=== PATIENT | female | born 1955 | race Caucasian/White ===

== ENCOUNTER 2017-04-19 16:35 | Inpatient (IN) | payer MEDICARE, MEDICAID ==
--- NOTE | 2017-04-19 16:42 | ED Physician Chart ---
Chief Complaint/HPI - Patient Information Date Seen:: 04/19/17 Time Seen:: 16:37 Chief Complaint:: paranoid History of Present Illness:: pt sent from [facility] for staff concerns about increasing delusions and paranoia. they feel pt is not able to care for self in their environment. pt is alert. denies recent pain or injury or illness. she has long hx of psych dz. Allergies:: Allergies Allergy/AdvReac Type Severity Reaction Status Date / Time No Known Allergies Allergy Verified 07/07/16 20:34 Historian:: Patient, EMS Review:: Transfer documents Reviewed Review of Systems - Review of Systems General/Constitutional: No fever, No chills, No weight loss, No weakness, No diaphoresis, No edema, No loss of appetite Skin: No skin lesions, No rash, No bruising Head: No headache, No light-headedness Eyes: No loss of vision, No pain, No diplopia ENT: No earache, No nasal drainage, No sore throat, No tinnitus Neck: No neck pain, No swelling, No thyromegaly, No stiffness, No mass noted Cardio Vascular: No chest pain, No palpitations, No PND, No orthopnea, No edema Pulmonary: No SOB, No cough, No sputum, No wheezing GI: No nausea, No vomiting, No diarrhea, No pain, No melena, No hematochezia, No constipation, No hematemesis G/U: No dysuria, No frequency, No hematuria Musculoskeletal: No bone or joint pain, No back pain, No muscle pain Endocrine: No polyuria, No polydipsia Psychiatric: Prior psych history, No depression, Anxiety, No suicidal ideation, Auditory hallucination Hematopoietic: No bruising, No lymphadenopathy Allergic/Immuno: No urticaria, No angioedema Neurological: No syncope, No focal symptoms, No weakness, No paresthesia, No headache, No seizure, No dizziness, Confusion (?), No confusion, No vertigo Past Medical History - Past Medical History Past Medical History: HTN, CAD Social History: Non Smoker, No Alcohol, No Drug Use, Care Facility Psychiatricy History: Schizophrenia, Other (impulse ctrl) Medication: Reviewed Family Medical History - Family Member Father History Unknown: Yes Ethnicity: Non- Living Status: Hx Family Cancer: No Hx Family Coronary Artery Disease: No Hx Family Congestive Heart Failure: No Hx Family Hypertension: Yes Hx Family Stroke: No Hx Family Diabetes: No Hx Family Seizures: No Hx Family Dementia: No Hx Family AIDS: No Hx Family HIV: No Hx Family COPD: No Hx Family Hepatitis: No Hx Family Psychiatric Problems: Yes Hx Family Tuberculosis: No Physical Exam - Physical Examination General/Constitutional: Awake, Well-developed, well-nourished, Alert, No distress, GCS 15, Non-toxic appearing, Ambulatory Other Gen/Cons comments:: alert. mod obese. no edema. no sob. seems stable initially other than some mild confusion. vss. Head: Atraumatic Eyes: Lids, conjuctiva normal, PERRL, EOMI Skin: Nl inspection, No rash, No skin lesions, No ecchymosis, Well hydrated, No lymphadenopathy ENMT: External ears, nose nl, Nasal exam nl, Lips, teeth, gums nl Neck: Nontender, Full ROM w/o pain, No JVD, No nuchal rigidity, No bruit, No mass, No stridor Respiratory: Nl effort/Exclusion, Clear to Auscultation, No Wheeze/Rhonchi/Rales Cardio Vascular: RRR, No murmur, gallop, rubs, NL S1 S2 GI: No tenderness/rebounding/guarding, No organomegaly, No hernia, Normal BS's, Nondistended, No mass/bruits, No McBurney tenderness : No CVA tenderness Extremities: No tenderness or effusion, Full ROM, normal strength in all extremities, No edema, Normal digits & nails Neuro/Psych: Alert/oriented, DTR's symmetric, Normal sensory exam, Normal motor strength, Judgement/insight normal, Mood normal, Normal gait, No focal deficits Other Neuro/Psych comments:: calm at present. Misc: normal gait, Normal back, No paraspinal tenderness Labs/Radiology/EKG Results - Lab Results Results: Laboratory Tests 04/19/17 04/19/17 04/19/17 16:52 16:52 16:52 WBC 6.5 D RBC 4.43 Hgb 13.8 Hct 41.0 MCV 92.6 MCH 31.2 H MCHC Differential 33.7 RDW 12.6 Plt Count 155 MPV 11.1 Neutrophils % 40.8 Lymphocytes % 49.0 Monocytes % 8.1 Eosinophils % 1.9 Basophils % 0.2 Sodium 135 L Potassium 4.0 Chloride 103 Carbon Dioxide 27.3 Anion Gap 8.7 BUN 18 Creatinine 0.8 Est GFR ( Amer) > 60.0 Est GFR (Non-Af Amer) > 60.0 BUN/Creatinine Ratio 22.5 Glucose 97 Calcium 9.6 Total Bilirubin 0.3 AST 13 ALT 18 Alkaline Phosphatase 39 Total Protein 7.5 Albumin 4.2 Globulin 3.3 Albumin/Globulin Ratio 1.3 Triglycerides 237 H Cholesterol 177 LDL Cholesterol Direct 122 HDL Cholesterol 23 TSH 1.52 Salicylates < 25.0 L Acetaminophen < 10.0 L Ethyl Alcohol < 10 - EKG Interpretations EKG Time:: 16:45 Rate & Rhythm: nsr 65 [place]: 5 Intervals: qtc 625 ED Septic Shock - . Is Septic Shock (SBP<90, OR Lactate>4 mmol\L) present?: No Reassessment (Disposition) - Reassessment Reassessment:: pt remained calm/cooperative in ed. 6;43p) pt is medically clear for geripsych admission...awaiting bed... Reassessment Condition:: Unchanged - Diagnosis Diagnosis:: 1 worsening psychosis - delusional thinking 2 incidental prolonged qt on ecg - Patient Disposition Admitted to:: [facility] Condition at Disposition:: Unchanged
[2017-04-19 16:59] LABS: % BASOPHILS 0.2 % (0.0-2.0); % EOSINOPHILS 1.9 % (0.0-5.0); % MONOCYTES 8.1 % (2.0-10.0); % NEUTROPHILS 40.8 % (40.0-80.0); HEMOGLOBIN 13.8 gm/dL (11.7-15.5); MEAN CELL VOLUME 92.6 fl (81-100); MEAN CORPUSCULAR HEMOGLOBIN 31.2 pg (27.0-31.0); MEAN CORPUSCULAR HGB CONC 33.7 pg (28.0-36.0); MEAN PLATELET VOLUME 11.1 fl; NEUTROPHILE ABSOLUTE 2.7 Th/cmm (1.8-8.0); PLATELET COUNT 155 Th/cmm (150-400); RED BLOOD COUNT 4.43 Mil/cmm (3.80-5.10); RED CELL DISTRIBUTION WIDTH 12.6 % (11.5-20.0)
[2017-04-19 17:01] LABS: WHITE BLOOD COUNT 6.5 Th/cmm (4.8-10.8)
[2017-04-19 17:16] LABS: ACETAMINOPHEN < 10.0 ug/mL (10.0-30.0); ALB/GLOB RATIO 1.3 (1.0-1.8); ALKALINE PHOSPHATASE 39 U/L (34-104); ANION GAP 8.7 (7.0-16.0); BILIRUBIN,TOTAL 0.3 mg/dL (0.3-1.0); BUN - UREA NITROGEN 18 mg/dL (7-25); BUN/CREATININE RATIO 22.5; CALCIUM SERUM 9.6 mg/dL (8.6-10.3); CARBON DIOXIDE 27.3 mEq/L (21.0-31.0); CHLORIDE 103 mEq/L (98-107); CHOLESTEROL 177 mg/dL (<200); CREATININE - SERUM 0.8 mg/dL (0.6-1.2); GLUCOSE 97 mg/dL (70-105); SGOT 13 U/L (13-39); SGPT/ALT 18 U/L (7-52); SODIUM SERUM 135 mEq/L (136-145); TRIGLYCERIDES 237 mg/dL (<150)
[2017-04-19 18:56] LABS: URINE BILIRUBIN NEGATIVE (NEGATIVE); URINE COLOR AMBER; URINE GLUCOSE (UA) NEGATIVE (NEGATIVE); URINE KETONE 15 mg/dL (NEGATIVE)
[2017-04-19 18:57] LABS: URINE BACTERIA NONE SEEN /hpf (NONE SEEN); URINE BLOOD NEGATIVE (NEGATIVE); URINE EPITHELIAL CELLS MODERATE /lpf (FEW); URINE PH 5.5; URINE PROTEIN 30 mg/dL (NEGATIVE); URINE RBC NONE SEEN /hpf (0-5); URINE UROBILINOGEN 0.2 E.U./dL (0.2 - 1.0); URINE WBC 0-2 /hpf (0-5)
[2017-04-19 19:00] LABS: AMPHETAMINE URINE NEGATIVE (NEGATIVE); BARBITURATES URINE NEGATIVE (NEGATIVE); METHADONE URINE NEGATIVE (NEGATIVE)
[2017-04-19 19:41] VITALS: BP 132/78
[2017-04-19] MEDS ORDERED: Magnesium Hydroxide (MOM) 30 mL UDC PO PRN (19:51)
[2017-04-20] MEDS ORDERED: Benztropine 1 MG TAB PO SCH (09:00)
[2017-04-20] MEDS: Calcium Carb/Vit D 500 mg/200 U Tab PO SCH (09:11)
--- NOTE | 2017-04-20 15:20 | Admit Criteria Form ---
Admit Criteria Forms - Admit Criteria Diagnosis: PSYCHIATRIC DISORDERS (Place 'X' for any and all applicable criteria): Ongoing inpatient care may be needed for 1 or more of the following(1)(2)(3)(4)( 6)(7)(8): [ ]I. Danger to self or others not manageable at lower level of care. [ ]II. Grave disability (eg, inability to perform self care necessary at lower level of care) [ ]III. Agitation or inappropriate behavior interfering with care for primary condition (eg, attempting to discontinue lines or drains prematurely, unable to cooperate with respiratory care) [X]IV. Severe disability or disorder indicated by ALL of the following: [X]a) Severe behavioral health disorder-related symptoms or condition indicated by 1 or more of the following: [ ]i) Severe problem with cognition, memory, judgment, or impulse control [X]ii) Severe clinical manifestations (eg, hallucinations, delusions, other acute psychotic symptoms, shivani, extreme agitation or anxiety) [X]b) Patient management at lower level of care is not feasible until acute intervention or modification is initiated. Extended stay beyond goal length of stay for the primary condition may be needed until ALLof the following are present(1)(2)(3)(4)(7)72)(23): [ ]a) Danger to self or others is absent or manageable at lower level of care [ ]b) Behavior crisis management, including physical or chemical restraints, is required and is not available at a lower level of care. [ ]c) Behavioral symptoms (e.g., agitation, somnolence, inappropriate behavior) are present, and are not manageable at a lower level of care. [ ]d) Patient cannot understand follow-up treatment and crisis plan. [ ]e) Provider and supports are sufficiently available at lower level of care. [ ]f) Patient can participate (e.g., verify absence of plan for harm) and is in needed of monitoring. The original [facility] content created by [facility] has been revised. The portions of the content which have been revised are identified through the use of italic text or in bold, and [facility] has neither reviewed nor approved the modified material. All other unmodified content is copyright [facility]. Please see references footnoted in the original [facility] edition 2017
[2017-04-20] MEDS: Benztropine 1 MG TAB PO SCH (17:44)
[2017-04-21] MEDS: Calcium Carb/Vit D 500 mg/200 U Tab PO SCH (08:42)
[2017-04-21] MEDS: Benztropine 1 MG TAB PO SCH ×2 (08:43→17:08)
[2017-04-22] MEDS: Calcium Carb/Vit D 500 mg/200 U Tab PO SCH (09:26)
[2017-04-22] MEDS: Benztropine 1 MG TAB PO SCH ×2 (09:27→18:00)
[2017-04-23] MEDS: Benztropine 1 MG TAB PO SCH ×2 (09:09→17:39)
[2017-04-23] MEDS: Atorvastatin Calcium 10 MG TAB PO SCH (09:11)
[2017-04-23] MEDS: Calcium Carb/Vit D 500 mg/200 U Tab PO SCH (09:12)
[2017-04-24] MEDS: Benztropine 1 MG TAB PO SCH ×2 (08:49→16:56)
[2017-04-24] MEDS: Atorvastatin Calcium 10 MG TAB PO SCH (08:49)
[2017-04-24] MEDS: Calcium Carb/Vit D 500 mg/200 U Tab PO SCH (08:49)
[2017-04-25] MEDS: Calcium Carb/Vit D 500 mg/200 U Tab PO SCH (09:28)
[2017-04-25] MEDS: Atorvastatin Calcium 10 MG TAB PO SCH (09:29)
[2017-04-25] MEDS: Benztropine 1 MG TAB PO SCH ×2 (09:29→18:18)
[2017-04-26] MEDS: Atorvastatin Calcium 10 MG TAB PO SCH (09:28)
[2017-04-26] MEDS: Calcium Carb/Vit D 500 mg/200 U Tab PO SCH (09:28)
[2017-04-26] MEDS: Benztropine 1 MG TAB PO SCH ×2 (09:29→17:59)
[2017-04-27] MEDS: Calcium Carb/Vit D 500 mg/200 U Tab PO SCH (10:18)
[2017-04-27] MEDS: Benztropine 1 MG TAB PO SCH ×2 (10:19→18:14)
[2017-04-27] MEDS: Atorvastatin Calcium 10 MG TAB PO SCH (10:19)
[2017-04-28] MEDS: Benztropine 1 MG TAB PO SCH ×2 (08:08→17:11)
[2017-04-28] MEDS: Atorvastatin Calcium 10 MG TAB PO SCH (08:08)
[2017-04-28] MEDS: Calcium Carb/Vit D 500 mg/200 U Tab PO SCH (08:08)
[2017-04-29] MEDS: Atorvastatin Calcium 10 MG TAB PO SCH (08:15)
[2017-04-29] MEDS: Calcium Carb/Vit D 500 mg/200 U Tab PO SCH (08:15)
[2017-04-29] MEDS: Benztropine 1 MG TAB PO SCH ×2 (08:15→17:13)
[2017-04-30] MEDS: Atorvastatin Calcium 10 MG TAB PO SCH (08:34)
[2017-04-30] MEDS: Benztropine 1 MG TAB PO SCH ×2 (08:35→16:37)
[2017-04-30] MEDS: Calcium Carb/Vit D 500 mg/200 U Tab PO SCH (08:35)
[2017-05-01] MEDS: Calcium Carb/Vit D 500 mg/200 U Tab PO SCH (09:50)
[2017-05-01] MEDS: Benztropine 1 MG TAB PO SCH ×2 (09:50→17:11)
[2017-05-01] MEDS: Atorvastatin Calcium 10 MG TAB PO SCH (09:50)
[2017-05-02] MEDS: Atorvastatin Calcium 10 MG TAB PO SCH (09:37)
[2017-05-02] MEDS: Calcium Carb/Vit D 500 mg/200 U Tab PO SCH (09:37)
[2017-05-02] MEDS: Benztropine 1 MG TAB PO SCH ×2 (09:38→17:15)
[2017-05-03] MEDS: Atorvastatin Calcium 10 MG TAB PO SCH (08:15)
[2017-05-03] MEDS: Benztropine 1 MG TAB PO SCH ×2 (08:15→16:10)
[2017-05-03] MEDS: Calcium Carb/Vit D 500 mg/200 U Tab PO SCH (08:15)
[2017-05-04] MEDS: Atorvastatin Calcium 10 MG TAB PO SCH (08:40)
[2017-05-04] MEDS: Calcium Carb/Vit D 500 mg/200 U Tab PO SCH (08:40)
[2017-05-04] MEDS: Benztropine 1 MG TAB PO SCH ×2 (08:41→16:21)
[2017-05-05] MEDS: Benztropine 1 MG TAB PO SCH ×2 (08:13→17:38)
[2017-05-05] MEDS: Atorvastatin Calcium 10 MG TAB PO SCH (08:14)
[2017-05-05] MEDS: Calcium Carb/Vit D 500 mg/200 U Tab PO SCH (08:14)
[2017-05-06] MEDS: Benztropine 1 MG TAB PO SCH ×2 (10:48→17:28)
[2017-05-06] MEDS: Atorvastatin Calcium 10 MG TAB PO SCH (10:48)
[2017-05-06] MEDS: Calcium Carb/Vit D 500 mg/200 U Tab PO SCH (10:48)
[2017-05-07] MEDS: Calcium Carb/Vit D 500 mg/200 U Tab PO SCH (09:21)
[2017-05-07] MEDS: Benztropine 1 MG TAB PO SCH ×2 (09:21→16:47)
[2017-05-07] MEDS: Atorvastatin Calcium 10 MG TAB PO SCH (09:22)
[2017-05-08] MEDS: Calcium Carb/Vit D 500 mg/200 U Tab PO SCH (09:40)
[2017-05-08] MEDS: Benztropine 1 MG TAB PO SCH ×2 (09:40→16:37)
[2017-05-08] MEDS: Atorvastatin Calcium 10 MG TAB PO SCH (09:40)
[2017-05-08] MEDS: risperiDONE 1 mg/mL 30 mL Bottle PO SCH (16:37)
[2017-05-09] MEDS: Benztropine 1 MG TAB PO SCH ×2 (09:03→16:12)
[2017-05-09] MEDS: Calcium Carb/Vit D 500 mg/200 U Tab PO SCH (09:03)
[2017-05-09] MEDS: Atorvastatin Calcium 10 MG TAB PO SCH (09:04)
[2017-05-09] MEDS: risperiDONE 1 mg/mL 30 mL Bottle PO SCH ×2 (09:06→16:12)
[2017-05-10] MEDS: Benztropine 1 MG TAB PO SCH ×2 (08:26→16:44)
[2017-05-10] MEDS: Atorvastatin Calcium 10 MG TAB PO SCH (08:26)
[2017-05-10] MEDS: Calcium Carb/Vit D 500 mg/200 U Tab PO SCH (08:26)
[2017-05-10] MEDS: risperiDONE 1 mg/mL 30 mL Bottle PO SCH ×3 (08:27→16:44)
[2017-05-10] MEDS: NYSTATIN 100000 UNITS/GM POWD TP SCH (21:00)
--- NOTE | 2017-05-11 08:07 | General Progress Note ---
Subjective - Review of Systems Service Date: 05/11/17 Subjective: Awake,Alert,Afebrile Objective - Results Result Diagrams: 04/19/17 16:52 04/19/17 16:52 Recent Labs: Laboratory Last Values WBC 6.5 Th/cmm (4.8-10.8) D 04/19/17 16:52 RBC 4.43 Mil/cmm (3.80-5.10) 04/19/17 16:52 Hgb 13.8 gm/dL (11.7-15.5) 04/19/17 16:52 Hct 41.0 % (35.0-45.0) 04/19/17 16:52 MCV 92.6 fl (81-100) 04/19/17 16:52 MCH 31.2 pg (27.0-31.0) H 04/19/17 16:52 MCHC Differential 33.7 pg (28.0-36.0) 04/19/17 16:52 RDW 12.6 % (11.5-20.0) 04/19/17 16:52 Plt Count 155 Th/cmm (150-400) 04/19/17 16:52 MPV 11.1 fl 04/19/17 16:52 Neutrophils % 40.8 % (40.0-80.0) 04/19/17 16:52 Lymphocytes % 49.0 % (20.0-50.0) 04/19/17 16:52 Monocytes % 8.1 % (2.0-10.0) 04/19/17 16:52 Eosinophils % 1.9 % (0.0-5.0) 04/19/17 16:52 Basophils % 0.2 % (0.0-2.0) 04/19/17 16:52 Sodium 135 mEq/L (136-145) L 04/19/17 16:52 Potassium 4.0 mEq/L (3.5-5.1) 04/19/17 16:52 Chloride 103 mEq/L (98-107) 04/19/17 16:52 Carbon Dioxide 27.3 mEq/L (21.0-31.0) 04/19/17 16:52 Anion Gap 8.7 (7.0-16.0) 04/19/17 16:52 BUN 18 mg/dL (7-25) 04/19/17 16:52 Creatinine 0.8 mg/dL (0.6-1.2) 04/19/17 16:52 Est GFR ( Amer) > 60.0 ml/min (>90) 04/19/17 16:52 Est GFR (Non-Af Amer) > 60.0 ml/min 04/19/17 16:52 BUN/Creatinine Ratio 22.5 04/19/17 16:52 Glucose 97 mg/dL (70-105) 04/19/17 16:52 Calcium 9.6 mg/dL (8.6-10.3) 04/19/17 16:52 Total Bilirubin 0.3 mg/dL (0.3-1.0) 04/19/17 16:52 AST 13 U/L (13-39) 04/19/17 16:52 ALT 18 U/L (7-52) 04/19/17 16:52 Alkaline Phosphatase 39 U/L (34-104) 04/19/17 16:52 Total Protein 7.5 gm/dL (6.0-8.3) 04/19/17 16:52 Albumin 4.2 gm/dL (3.7-5.3) 04/19/17 16:52 Globulin 3.3 gm/dL 04/19/17 16:52 Albumin/Globulin Ratio 1.3 (1.0-1.8) 04/19/17 16:52 Triglycerides 237 mg/dL (<150) H 04/19/17 16:52 Cholesterol 177 mg/dL (<200) 04/19/17 16:52 LDL Cholesterol Direct 122 mg/dL (75-193) 04/19/17 16:52 HDL Cholesterol 23 mg/dL (23-92) 04/19/17 16:52 TSH 1.52 uIU/ml (0.34-5.60) 04/19/17 16:52 Urine Source CLEAN C 04/19/17 18:30 Urine Color CHANDANA 04/19/17 18:30 Urine Clarity HAZY (CLEAR) 04/19/17 18:30 Urine pH 5.5 04/19/17 18:30 Ur Specific [place] 1.030 (1.005-1.030) 04/19/17 18:30 Urine Protein 30 mg/dL (NEGATIVE) H 04/19/17 18:30 Urine Glucose (UA) NEGATIVE mg/dL (NEGATIVE) 04/19/17 18:30 Urine Ketones 15 mg/dL (NEGATIVE) H 04/19/17 18:30 Urine Blood NEGATIVE (NEGATIVE) 04/19/17 18:30 Urine Nitrate NEGATIVE (NEGATIVE) 04/19/17 18:30 Urine Bilirubin NEGATIVE (NEGATIVE) 04/19/17 18:30 Urine Urobilinogen 0.2 E.U./dL (0.2 - 1.0) 04/19/17 18:30 Ur Leukocyte Esterase NEGATIVE (NEGATIVE) 04/19/17 18:30 Urine RBC NONE SEEN /hpf (0-5) 04/19/17 18:30 Urine WBC 0-2 /hpf (0-5) 04/19/17 18:30 Ur Epithelial Cells MODERATE /lpf (FEW) 04/19/17 18:30 Urine Bacteria NONE SEEN /hpf (NONE SEEN) 04/19/17 18:30 Salicylates < 25.0 mg/L (30.0-100.0) L 04/19/17 16:52 Urine Opiates Screen NEGATIVE (NEGATIVE) 04/19/17 18:30 Urine Methadone Screen NEGATIVE (NEGATIVE) 04/19/17 18:30 Acetaminophen < 10.0 ug/mL (10.0-30.0) L 04/19/17 16:52 Ur Barbiturates Screen NEGATIVE (NEGATIVE) 04/19/17 18:30 Valproic Acid 51.5 ug/mL (50.0-100.0) 04/30/17 10:22 Ur Tricyclics Screen NEGATIVE (NEGATIVE) 04/19/17 18:30 Ur Phencyclidine Scrn NEGATIVE (NEGATIVE) 04/19/17 18:30 Amphetamines Screen NEGATIVE (NEGATIVE) 04/19/17 18:30 U Methamphetamines Scrn NEGATIVE (NEGATIVE) 04/19/17 18:30 U Benzodiazepines Scrn NEGATIVE (NEGATIVE) 04/19/17 18:30 U Cocaine Metab Screen NEGATIVE (NEGATIVE) 04/19/17 18:30 U Cannabinoids Screen NEGATIVE (NEGATIVE) 04/19/17 18:30 Ethyl Alcohol < 10 mg/dL (0-10) 04/19/17 16:52 RPR NONREACTIVE (NONREACTIVE) 04/19/17 16:52 - Physical Exam Vitals and I&O: Vital Signs Temp 97.8 F 05/11/17 06:34 Pulse 92 05/11/17 06:34 Resp 20 05/11/17 06:34 BP 137/71 05/11/17 06:34 Pulse Ox 96 05/11/17 06:34 Intake & Output 05/10/17 05/11/17 05/11/17 18:59 06:59 18:59 Intake Total 1800 120 Balance 1800 120 Intake: Oral 1800 120 Other: # Voids 3 3 # Bowel Movements 0 Active Medications: Current Medications Acetaminophen (Tylenol) 650 mg PO Q4HR PRN PRN Reason: Pain Stop: 06/18/17 19:50 Last Admin: 04/22/17 14:50 Dose: 650 mg Atorvastatin Calcium (Lipitor) 10 mg PO DAILY GUTIERREZ PRN Reason: Protocol Stop: 06/22/17 08:59 Last Admin: 05/10/17 08:26 Dose: 10 mg Benztropine Mesylate (Cogentin) 2 mg PO BID GUTIERREZ Stop: 06/19/17 11:55 Last Admin: 05/10/17 16:44 Dose: 2 mg Bupropion HCl (Wellbutrin Sr) 150 mg PO BID GUTIERREZ PRN Reason: Protocol Stop: 07/01/17 16:59 Last Admin: 05/10/17 16:44 Dose: 150 mg Calcium/Vitamin D (Oscal W/Vitamin D) 1 tab PO DAILY GUTIERREZ Stop: 06/19/17 08:59 Last Admin: 05/10/17 08:26 Dose: 1 tab Carvedilol (Coreg) 3.125 mg PO BIDWM GUTIERREZ Stop: 06/19/17 07:59 Last Admin: 05/10/17 17:13 Dose: Not Given Clonidine HCl (Catapres) 0.1 mg PO Q8HR PRN PRN Reason: Hypertension Stop: 07/04/17 07:48 Last Admin: 05/10/17 05:42 Dose: 0.1 mg Divalproex Sodium (Depakote Er) 500 mg PO BID GUTIERREZ PRN Reason: Protocol Stop: 06/19/17 08:59 Last Admin: 05/10/17 16:45 Dose: 500 mg Docusate Sodium (Colace) 100 mg PO BID GUTIERREZ Stop: 06/19/17 08:59 Last Admin: 05/10/17 16:45 Dose: 100 mg Escitalopram Oxalate (Lexapro) 20 mg PO DAILY GUTIERREZ PRN Reason: Protocol Stop: 06/25/17 10:36 Last Admin: 05/10/17 08:27 Dose: 20 mg Magnesium Hydroxide (Milk Of Magnesia) 30 ml PO DAILY PRN PRN Reason: if stool softener ineffective Stop: 06/18/17 19:50 Nystatin (Nystop) 0 units TP TID GUTIERREZ Stop: 07/09/17 20:59 Last Admin: 05/10/17 21:00 Dose: 1 units Risperidone (Risperdal) 2 mg PO BID GUTIERREZ PRN Reason: Protocol Stop: 07/09/17 08:59 Last Admin: 05/10/17 16:44 Dose: 2 mg General: Alert HEENT: Atraumatic Cardiovascular: Regular rate Lungs: Clear to auscultation - Procedures Procedures: Procedures Procedure Code Date GROUP PSYCHOTHERAPY 14397 10/22/15 GROUP PSYCHOTHERAPY [id number] 10/22/15 OTHER GROUP THERAPY 94.44 05/18/15 RECREATIONAL THERAPY 93.81 11/02/12 Assessment/Plan - Problem List Patient Problems: All Active Problems Anxiety (Active) F41.9 Chronic obstructive lung disease (Active) J44.9 History of - depression (Active) Z86.59 INCREASED HALLUCINATIONS (Active 01/10/14) Osteoarthritis (Active) M19.90 Posttraumatic stress disorder (Active) F43.10 Schizoaffective disorder (Active) F25.9 Agitated (Acute) R45.1 - Assessment Assessment: See Above - Plan Plan: Continue current treatment Nutritional Asmnt/Malnutr-PDOC - Dietary Evaluation Malnutrition Findings (Please click <Entered> for more info): Nutritional Asmnt/Malnutrition Start: 04/22/17 10: 59 Text: Status: Complete Freq: Document 04/22/17 10:59 SUN (Rec: 04/22/17 11:11 SUN CLAY- FNS1) Nutritional Asmnt/Malnutrition Patient General Information Nutritional Screening Moderate Risk Screening Diagnosis Psychosis Pertinent Medical Hx/Surgical Hx Schizophrenia, major depressive disorder, COPD, Seizure, Hypertension, anxiety , cardiomegaly, osteoarthritis . Subjective Information Patient was admitted from SNF for increased agitation, aggressive behavior and paranoia. Sitting up in bed. No issues with current diet; adequate oral intake to meet nutrient needs. Current Diet Order/ Nutrition Support Mechanical soft chopped Patient / S.O Not Indicated Pertinent Medications oscal w/vitamin D, colace, MOM Pertinent Labs TAG 237 Nutritional Hx/Data Height 1.73 m Height (Calculated Centimeters) 172.7 Current Weight (lbs) 97.069 kg Weight (Calculated Kilograms) 97.1 Weight (Calculated Grams) 33614.8 [place] Body Weight 140 % [place] Body Weight 152 Recent Weight Change No Weight Status Obese GI Symptoms GI Symptoms None Food Allergies No Cultural/Ethnic/Moravian Belief None indicated Usual diet at home soft Skin Integrity/Comment: Jason 21 Current %PO Good (75-100%) Estimated Nutritional Goals BEE in Kcals: Adj wt of IBW Calories/Kcals/Kg 72kg AdjBW 25-30 kcal/kg Kcals Calculated ~4355-1279 kcal/day Protein: Adj wt of IBW Protein g/k-1.2 gm/kg Protein Calculated 70-85 gm/day Fluid: ml ~3578-1532 ml/day (1 ml/kcal) Nutritional Problem 1. Problem Problem Obesity related to Etiology possible excessive oral intake aeb Signs/Symptoms: BMI 32.5 kg/m2 Intervention/Recommendation Comments 1. Continue mechanical soft chopped diet as tolerated by patient. 2. Monitor weight and prevent snacking between meals. Expected Outcomes/Goals Expected Outcomes/Goals Weight stable or trend toward ideal body weight, labs remain normal, oral intake to meet 75-100% of estimated nutrient needs.
[2017-05-11] MEDS: Atorvastatin Calcium 10 MG TAB PO SCH (08:36)
[2017-05-11] MEDS: Calcium Carb/Vit D 500 mg/200 U Tab PO SCH (08:37)
[2017-05-11] MEDS: Benztropine 1 MG TAB PO SCH ×2 (08:37→17:48)
[2017-05-11] MEDS: NYSTATIN 100000 UNITS/GM POWD TP SCH ×3 (08:39→21:45)
[2017-05-11] MEDS: risperiDONE 1 mg/mL 30 mL Bottle PO SCH (08:39)
[2017-05-11 11:47] LABS: % BASOPHILS 0.8 % (0.0-2.0); % MONOCYTES 8.4 % (2.0-10.0); % NEUTROPHILS 72.8 % (40.0-80.0); HEMATOCRIT 39.3 % (35.0-45.0); HEMOGLOBIN 13.4 gm/dL (11.7-15.5); MEAN CELL VOLUME 92.1 fl (81-100); MEAN CORPUSCULAR HEMOGLOBIN 31.3 pg (27.0-31.0); MEAN PLATELET VOLUME 10.7 fl; NEUTROPHILE ABSOLUTE 6.5 Th/cmm (1.8-8.0); PLATELET COUNT 170 Th/cmm (150-400); RED BLOOD COUNT 4.27 Mil/cmm (3.80-5.10); RED CELL DISTRIBUTION WIDTH 12.6 % (11.5-20.0); WHITE BLOOD COUNT 8.9 Th/cmm (4.8-10.8)
[2017-05-11 12:06] LABS: ALB/GLOB RATIO 1.2 (1.0-1.8); ALKALINE PHOSPHATASE 50 U/L (34-104); ANION GAP 10.8 (7.0-16.0); BILIRUBIN,TOTAL 0.4 mg/dL (0.3-1.0); BUN - UREA NITROGEN 14 mg/dL (7-25); BUN/CREATININE RATIO 17.5; CALCIUM SERUM 9.9 mg/dL (8.6-10.3); CARBON DIOXIDE 27.3 mEq/L (21.0-31.0); CHLORIDE 100 mEq/L (98-107); CREATININE - SERUM 0.8 mg/dL (0.6-1.2); GLUCOSE 146 mg/dL (70-105); POTASSIUM SERUM 4.1 mEq/L (3.5-5.1); SGOT 19 U/L (13-39); SGPT/ALT 18 U/L (7-52); SODIUM SERUM 134 mEq/L (136-145)
--- NOTE | 2017-05-11 19:26 | Progress Notes ---
DATE: 05/11/2017 Case was discussed with staff of the patient, reviewed records. The patient was confused this morning. She could not recognize me, could not tell me the date, does not know where she is, why she is here, still this is quite a change, she believes she cannot walk. She has been compliant with the medications with no side effects. I did take her off Seroquel yesterday; however, I think at this point, she is delirious, so I asked the staff to get the stat urinalysis, CBC and BMP and call the medical doctor, Dr. Kendrick regarding that to evaluate her, as she may be having some infection and she ____ and we will continue to work with the patient in group therapy, milieu therapy, adjust medication as needed. JOB# [id number]
--- NOTE | 2017-05-12 08:02 | General Progress Note ---
Subjective - Review of Systems Service Date: 05/12/17 Subjective: Awake,Alert,Afebrile Objective - Results Result Diagrams: 05/11/17 11:39 05/11/17 11:39 Recent Labs: Laboratory Last Values WBC 8.9 Th/cmm (4.8-10.8) D 05/11/17 11:39 RBC 4.27 Mil/cmm (3.80-5.10) 05/11/17 11:39 Hgb 13.4 gm/dL (11.7-15.5) 05/11/17 11:39 Hct 39.3 % (35.0-45.0) 05/11/17 11:39 MCV 92.1 fl (81-100) 05/11/17 11:39 MCH 31.3 pg (27.0-31.0) H 05/11/17 11:39 MCHC Differential 34.0 pg (28.0-36.0) 05/11/17 11:39 RDW 12.6 % (11.5-20.0) 05/11/17 11:39 Plt Count 170 Th/cmm (150-400) 05/11/17 11:39 MPV 10.7 fl 05/11/17 11:39 Neutrophils % 72.8 % (40.0-80.0) 05/11/17 11:39 Lymphocytes % 17.0 % (20.0-50.0) L 05/11/17 11:39 Monocytes % 8.4 % (2.0-10.0) 05/11/17 11:39 Eosinophils % 1.0 % (0.0-5.0) 05/11/17 11:39 Basophils % 0.8 % (0.0-2.0) 05/11/17 11:39 Sodium 134 mEq/L (136-145) L 05/11/17 11:39 Potassium 4.1 mEq/L (3.5-5.1) 05/11/17 11:39 Chloride 100 mEq/L (98-107) 05/11/17 11:39 Carbon Dioxide 27.3 mEq/L (21.0-31.0) 05/11/17 11:39 Anion Gap 10.8 (7.0-16.0) 05/11/17 11:39 BUN 14 mg/dL (7-25) 05/11/17 11:39 Creatinine 0.8 mg/dL (0.6-1.2) 05/11/17 11:39 Est GFR ( Amer) > 60.0 ml/min (>90) 05/11/17 11:39 Est GFR (Non-Af Amer) > 60.0 ml/min 05/11/17 11:39 BUN/Creatinine Ratio 17.5 05/11/17 11:39 Glucose 146 mg/dL (70-105) H 05/11/17 11:39 Calcium 9.9 mg/dL (8.6-10.3) 05/11/17 11:39 Total Bilirubin 0.4 mg/dL (0.3-1.0) 05/11/17 11:39 AST 19 U/L (13-39) 05/11/17 11:39 ALT 18 U/L (7-52) 05/11/17 11:39 Alkaline Phosphatase 50 U/L (34-104) 05/11/17 11:39 Total Protein 7.9 gm/dL (6.0-8.3) 05/11/17 11:39 Albumin 4.3 gm/dL (3.7-5.3) 05/11/17 11:39 Globulin 3.6 gm/dL 05/11/17 11:39 Albumin/Globulin Ratio 1.2 (1.0-1.8) 05/11/17 11:39 Triglycerides 237 mg/dL (<150) H 04/19/17 16:52 Cholesterol 177 mg/dL (<200) 04/19/17 16:52 LDL Cholesterol Direct 122 mg/dL (75-193) 04/19/17 16:52 HDL Cholesterol 23 mg/dL (23-92) 04/19/17 16:52 TSH 1.52 uIU/ml (0.34-5.60) 04/19/17 16:52 Urine Source CLEAN C 04/19/17 18:30 Urine Color CHANDANA 04/19/17 18:30 Urine Clarity HAZY (CLEAR) 04/19/17 18:30 Urine pH 5.5 04/19/17 18:30 Ur Specific [place] 1.030 (1.005-1.030) 04/19/17 18:30 Urine Protein 30 mg/dL (NEGATIVE) H 04/19/17 18:30 Urine Glucose (UA) NEGATIVE mg/dL (NEGATIVE) 04/19/17 18:30 Urine Ketones 15 mg/dL (NEGATIVE) H 04/19/17 18:30 Urine Blood NEGATIVE (NEGATIVE) 04/19/17 18:30 Urine Nitrate NEGATIVE (NEGATIVE) 04/19/17 18:30 Urine Bilirubin NEGATIVE (NEGATIVE) 04/19/17 18:30 Urine Urobilinogen 0.2 E.U./dL (0.2 - 1.0) 04/19/17 18:30 Ur Leukocyte Esterase NEGATIVE (NEGATIVE) 04/19/17 18:30 Urine RBC NONE SEEN /hpf (0-5) 04/19/17 18:30 Urine WBC 0-2 /hpf (0-5) 04/19/17 18:30 Ur Epithelial Cells MODERATE /lpf (FEW) 04/19/17 18:30 Urine Bacteria NONE SEEN /hpf (NONE SEEN) 04/19/17 18:30 Salicylates < 25.0 mg/L (30.0-100.0) L 04/19/17 16:52 Urine Opiates Screen NEGATIVE (NEGATIVE) 04/19/17 18:30 Urine Methadone Screen NEGATIVE (NEGATIVE) 04/19/17 18:30 Acetaminophen < 10.0 ug/mL (10.0-30.0) L 04/19/17 16:52 Ur Barbiturates Screen NEGATIVE (NEGATIVE) 04/19/17 18:30 Valproic Acid 51.5 ug/mL (50.0-100.0) 04/30/17 10:22 Ur Tricyclics Screen NEGATIVE (NEGATIVE) 04/19/17 18:30 Ur Phencyclidine Scrn NEGATIVE (NEGATIVE) 04/19/17 18:30 Amphetamines Screen NEGATIVE (NEGATIVE) 04/19/17 18:30 U Methamphetamines Scrn NEGATIVE (NEGATIVE) 04/19/17 18:30 U Benzodiazepines Scrn NEGATIVE (NEGATIVE) 04/19/17 18:30 U Cocaine Metab Screen NEGATIVE (NEGATIVE) 04/19/17 18:30 U Cannabinoids Screen NEGATIVE (NEGATIVE) 04/19/17 18:30 Ethyl Alcohol < 10 mg/dL (0-10) 04/19/17 16:52 RPR NONREACTIVE (NONREACTIVE) 04/19/17 16:52 - Physical Exam Vitals and I&O: Vital Signs Temp 97.8 F 05/12/17 06:32 Pulse 99 05/12/17 06:32 Resp 19 05/12/17 06:32 BP 148/83 05/12/17 06:32 Pulse Ox 97 05/12/17 06:32 Intake & Output 05/11/17 05/12/17 05/12/17 18:59 06:59 18:59 Intake Total 1400 120 Balance 1400 120 Weight (lbs) 98.293 kg Intake: Oral 1400 120 Other: # Voids 3 3 # Bowel Movements 0 Active Medications: Current Medications Acetaminophen (Tylenol) 650 mg PO Q4HR PRN PRN Reason: Pain Stop: 06/18/17 19:50 Last Admin: 04/22/17 14:50 Dose: 650 mg Atorvastatin Calcium (Lipitor) 10 mg PO DAILY GUTIERREZ PRN Reason: Protocol Stop: 06/22/17 08:59 Last Admin: 05/11/17 08:36 Dose: 10 mg Benztropine Mesylate (Cogentin) 2 mg PO BID GUTIERREZ Stop: 06/19/17 11:55 Last Admin: 05/11/17 17:48 Dose: 2 mg Bupropion HCl (Wellbutrin Sr) 150 mg PO BID GUTIERREZ PRN Reason: Protocol Stop: 07/01/17 16:59 Last Admin: 05/11/17 17:47 Dose: 150 mg Calcium/Vitamin D (Oscal W/Vitamin D) 1 tab PO DAILY GUTIERREZ Stop: 06/19/17 08:59 Last Admin: 05/11/17 08:37 Dose: 1 tab Carvedilol (Coreg) 3.125 mg PO BIDWM GUTIERREZ Stop: 06/19/17 07:59 Last Admin: 05/11/17 17:48 Dose: 3.125 mg Clonidine HCl (Catapres) 0.1 mg PO Q8HR PRN PRN Reason: Hypertension Stop: 07/04/17 07:48 Last Admin: 05/10/17 05:42 Dose: 0.1 mg Divalproex Sodium (Depakote Er) 500 mg PO BID GUTIERREZ PRN Reason: Protocol Stop: 06/19/17 08:59 Last Admin: 05/11/17 17:47 Dose: 500 mg Docusate Sodium (Colace) 100 mg PO BID GUTIERREZ Stop: 06/19/17 08:59 Last Admin: 05/11/17 17:47 Dose: 100 mg Escitalopram Oxalate (Lexapro) 20 mg PO DAILY GUTIERREZ PRN Reason: Protocol Stop: 06/25/17 10:36 Last Admin: 05/11/17 08:37 Dose: 20 mg Magnesium Hydroxide (Milk Of Magnesia) 30 ml PO DAILY PRN PRN Reason: if stool softener ineffective Stop: 06/18/17 19:50 Last Admin: 05/11/17 23:55 Dose: 30 ml Nystatin (Nystop) 0 units TP TID GUTIERREZ Stop: 07/09/17 20:59 Last Admin: 05/11/17 21:45 Dose: 1 units General: Alert HEENT: Atraumatic Cardiovascular: Regular rate Lungs: Clear to auscultation - Procedures Procedures: Procedures Procedure Code Date GROUP PSYCHOTHERAPY 37033 10/22/15 GROUP PSYCHOTHERAPY GZHZZZZ 10/22/15 OTHER GROUP THERAPY 94.44 05/18/15 RECREATIONAL THERAPY 93.81 11/02/12 Assessment/Plan - Problem List Patient Problems: All Active Problems Anxiety (Active) F41.9 Chronic obstructive lung disease (Active) J44.9 History of - depression (Active) Z86.59 INCREASED HALLUCINATIONS (Active 01/10/14) Osteoarthritis (Active) M19.90 Posttraumatic stress disorder (Active) F43.10 Schizoaffective disorder (Active) F25.9 Agitated (Acute) R45.1 - Assessment Assessment: BP elevated today. - Plan Plan: BP elevated. Will order Losartan 25mg Po daily and continue to monitor BP. Will add clonidine PRN Nutritional Asmnt/Malnutr-PDOC - Dietary Evaluation Malnutrition Findings (Please click <Entered> for more info): Nutritional Asmnt/Malnutrition Start: 04/22/17 10: 59 Text: Status: Complete Freq: Document 04/22/17 10:59 SUN (Rec: 04/22/17 11:11 SUN [email or web address]) Nutritional Asmnt/Malnutrition Patient General Information Nutritional Screening Moderate Risk Screening Diagnosis Psychosis Pertinent Medical Hx/Surgical Hx Schizophrenia, major depressive disorder, COPD, Seizure, Hypertension, anxiety , cardiomegaly, osteoarthritis . Subjective Information Patient was admitted from SNF for increased agitation, aggressive behavior and paranoia. Sitting up in bed. No issues with current diet; adequate oral intake to meet nutrient needs. Current Diet Order/ Nutrition Support Mechanical soft chopped Patient / S.O Not Indicated Pertinent Medications oscal w/vitamin D, colace, MOM Pertinent Labs TAG 237 Nutritional Hx/Data Height 1.73 m Height (Calculated Centimeters) 172.7 Current Weight (lbs) 97.069 kg Weight (Calculated Kilograms) 97.1 Weight (Calculated Grams) 98195.8 [place] Body Weight 140 % [place] Body Weight 152 Recent Weight Change No Weight Status Obese GI Symptoms GI Symptoms None Food Allergies No Cultural/Ethnic/Gnosticist Belief None indicated Usual diet at home soft Skin Integrity/Comment: Jason [place] Current %PO Good (75-100%) Estimated Nutritional Goals BEE in Kcals: Adj wt of IBW Calories/Kcals/Kg 72kg AdjBW 25-30 kcal/kg Kcals Calculated ~8332-0984 kcal/day Protein: Adj wt of IBW Protein g/k-1.2 gm/kg Protein Calculated 70-85 gm/day Fluid: ml ~0535-6338 ml/day (1 ml/kcal) Nutritional Problem 1. Problem Problem Obesity related to Etiology possible excessive oral intake aeb Signs/Symptoms: BMI 32.5 kg/m2 Intervention/Recommendation Comments 1. Continue mechanical soft chopped diet as tolerated by patient. 2. Monitor weight and prevent snacking between meals. Expected Outcomes/Goals Expected Outcomes/Goals Weight stable or trend toward ideal body weight, labs remain normal, oral intake to meet 75-100% of estimated nutrient needs.
[2017-05-12 08:29] LABS: URINE BILIRUBIN NEGATIVE (NEGATIVE); URINE BLOOD TRACE (NEGATIVE); URINE COLOR YELLOW; URINE GLUCOSE (UA) NEGATIVE (NEGATIVE); URINE KETONE TRACE mg/dL (NEGATIVE)
[2017-05-12 08:30] LABS: URINE PROTEIN NEGATIVE (NEGATIVE); URINE RBC 0-2 /hpf (0-5); URINE UROBILINOGEN 0.2 E.U./dL (0.2 - 1.0)
[2017-05-12 08:31] LABS: URINE BACTERIA NONE SEEN /hpf (NONE SEEN); URINE EPITHELIAL CELLS FEW /lpf (FEW); URINE WBC 0-2 /hpf (0-5)
[2017-05-12] MEDS: Calcium Carb/Vit D 500 mg/200 U Tab PO SCH (09:35)
[2017-05-12] MEDS: Benztropine 1 MG TAB PO SCH ×2 (09:35→17:11)
[2017-05-12] MEDS: Atorvastatin Calcium 10 MG TAB PO SCH (09:35)
[2017-05-12] MEDS: NYSTATIN 100000 UNITS/GM POWD TP SCH ×3 (09:37→20:53)
--- NOTE | 2017-05-12 16:37 | Progress Notes ---
DATE: 05/12/2017 Case was discussed with staff of the patient. The patient reported to have shown little progress. She was found to have no infection, nothing serious. She was started on medications for high lipid profile. She is still somewhat sedated today. She was unable to participate in a meaningful conversation, although the staff reports earlier she was able to feed herself with ____. She is still unpredictable and impulsive. I will be trying to decrease the dosages of her medications, decreasing Lexapro ____ to 10 mg a day. Continue with the Wellbutrin. No side effects with the medication, no sedation, no nausea and we will continue to work with the patient in group therapy, milieu therapy, adjust the medication as needed. JOB# [id number]
--- NOTE | 2017-05-13 07:05 | General Progress Note ---
Subjective - Review of Systems Service Date: 05/13/17 Subjective: Awake,Alert,Afebrile Objective - Results Result Diagrams: 05/11/17 11:39 05/11/17 11:39 Recent Labs: Laboratory Last Values WBC 8.9 Th/cmm (4.8-10.8) D 05/11/17 11:39 RBC 4.27 Mil/cmm (3.80-5.10) 05/11/17 11:39 Hgb 13.4 gm/dL (11.7-15.5) 05/11/17 11:39 Hct 39.3 % (35.0-45.0) 05/11/17 11:39 MCV 92.1 fl (81-100) 05/11/17 11:39 MCH 31.3 pg (27.0-31.0) H 05/11/17 11:39 MCHC Differential 34.0 pg (28.0-36.0) 05/11/17 11:39 RDW 12.6 % (11.5-20.0) 05/11/17 11:39 Plt Count 170 Th/cmm (150-400) 05/11/17 11:39 MPV 10.7 fl 05/11/17 11:39 Neutrophils % 72.8 % (40.0-80.0) 05/11/17 11:39 Lymphocytes % 17.0 % (20.0-50.0) L 05/11/17 11:39 Monocytes % 8.4 % (2.0-10.0) 05/11/17 11:39 Eosinophils % 1.0 % (0.0-5.0) 05/11/17 11:39 Basophils % 0.8 % (0.0-2.0) 05/11/17 11:39 Sodium 134 mEq/L (136-145) L 05/11/17 11:39 Potassium 4.1 mEq/L (3.5-5.1) 05/11/17 11:39 Chloride 100 mEq/L (98-107) 05/11/17 11:39 Carbon Dioxide 27.3 mEq/L (21.0-31.0) 05/11/17 11:39 Anion Gap 10.8 (7.0-16.0) 05/11/17 11:39 BUN 14 mg/dL (7-25) 05/11/17 11:39 Creatinine 0.8 mg/dL (0.6-1.2) 05/11/17 11:39 Est GFR ( Amer) > 60.0 ml/min (>90) 05/11/17 11:39 Est GFR (Non-Af Amer) > 60.0 ml/min 05/11/17 11:39 BUN/Creatinine Ratio 17.5 05/11/17 11:39 Glucose 146 mg/dL (70-105) H 05/11/17 11:39 Calcium 9.9 mg/dL (8.6-10.3) 05/11/17 11:39 Total Bilirubin 0.4 mg/dL (0.3-1.0) 05/11/17 11:39 AST 19 U/L (13-39) 05/11/17 11:39 ALT 18 U/L (7-52) 05/11/17 11:39 Alkaline Phosphatase 50 U/L (34-104) 05/11/17 11:39 Total Protein 7.9 gm/dL (6.0-8.3) 05/11/17 11:39 Albumin 4.3 gm/dL (3.7-5.3) 05/11/17 11:39 Globulin 3.6 gm/dL 05/11/17 11:39 Albumin/Globulin Ratio 1.2 (1.0-1.8) 05/11/17 11:39 Triglycerides 237 mg/dL (<150) H 04/19/17 16:52 Cholesterol 177 mg/dL (<200) 04/19/17 16:52 LDL Cholesterol Direct 122 mg/dL (75-193) 04/19/17 16:52 HDL Cholesterol 23 mg/dL (23-92) 04/19/17 16:52 TSH 1.52 uIU/ml (0.34-5.60) 04/19/17 16:52 Urine Source CATH 05/12/17 05:45 Urine Color YELLOW 05/12/17 05:45 Urine Clarity SLIGHT HAZY (CLEAR) 05/12/17 05:45 Urine pH 7.0 05/12/17 05:45 Ur Specific [place] 1.010 (1.005-1.030) 05/12/17 05:45 Urine Protein NEGATIVE mg/dL (NEGATIVE) 05/12/17 05:45 Urine Glucose (UA) NEGATIVE mg/dL (NEGATIVE) 05/12/17 05:45 Urine Ketones TRACE mg/dL (NEGATIVE) 05/12/17 05:45 Urine Blood TRACE (NEGATIVE) 05/12/17 05:45 Urine Nitrate NEGATIVE (NEGATIVE) 05/12/17 05:45 Urine Bilirubin NEGATIVE (NEGATIVE) 05/12/17 05:45 Urine Urobilinogen 0.2 E.U./dL (0.2 - 1.0) 05/12/17 05:45 Ur Leukocyte Esterase NEGATIVE (NEGATIVE) 05/12/17 05:45 Urine RBC 0-2 /hpf (0-5) 05/12/17 05:45 Urine WBC 0-2 /hpf (0-5) 05/12/17 05:45 Ur Epithelial Cells FEW /lpf (FEW) 05/12/17 05:45 Urine Bacteria NONE SEEN /hpf (NONE SEEN) 05/12/17 05:45 Salicylates < 25.0 mg/L (30.0-100.0) L 04/19/17 16:52 Urine Opiates Screen NEGATIVE (NEGATIVE) 04/19/17 18:30 Urine Methadone Screen NEGATIVE (NEGATIVE) 04/19/17 18:30 Acetaminophen < 10.0 ug/mL (10.0-30.0) L 04/19/17 16:52 Ur Barbiturates Screen NEGATIVE (NEGATIVE) 04/19/17 18:30 Valproic Acid 51.5 ug/mL (50.0-100.0) 04/30/17 10:22 Ur Tricyclics Screen NEGATIVE (NEGATIVE) 04/19/17 18:30 Ur Phencyclidine Scrn NEGATIVE (NEGATIVE) 04/19/17 18:30 Amphetamines Screen NEGATIVE (NEGATIVE) 04/19/17 18:30 U Methamphetamines Scrn NEGATIVE (NEGATIVE) 04/19/17 18:30 U Benzodiazepines Scrn NEGATIVE (NEGATIVE) 04/19/17 18:30 U Cocaine Metab Screen NEGATIVE (NEGATIVE) 04/19/17 18:30 U Cannabinoids Screen NEGATIVE (NEGATIVE) 04/19/17 18:30 Ethyl Alcohol < 10 mg/dL (0-10) 04/19/17 16:52 RPR NONREACTIVE (NONREACTIVE) 04/19/17 16:52 - Physical Exam Vitals and I&O: Vital Signs Temp 97.6 F 05/12/17 14:00 Pulse 91 05/12/17 14:00 Resp 20 05/12/17 19:58 BP 138/75 05/12/17 14:00 Pulse Ox 98 05/12/17 14:00 Intake & Output 05/12/17 05/13/17 05/13/17 18:59 06:59 18:59 Intake Total 960 Balance 960 Intake: Oral 960 Other: # Voids 0 # Bowel Movements 0 Active Medications: Current Medications Acetaminophen (Tylenol) 650 mg PO Q4HR PRN PRN Reason: Pain Stop: 06/18/17 19:50 Last Admin: 04/22/17 14:50 Dose: 650 mg Atorvastatin Calcium (Lipitor) 10 mg PO DAILY GUTIERREZ PRN Reason: Protocol Stop: 06/22/17 08:59 Last Admin: 05/12/17 09:35 Dose: Not Given Benztropine Mesylate (Cogentin) 2 mg PO BID GUTIERREZ Stop: 06/19/17 11:55 Last Admin: 05/12/17 17:11 Dose: Not Given Bupropion HCl (Wellbutrin Sr) 150 mg PO BID GUTIERREZ PRN Reason: Protocol Stop: 07/01/17 16:59 Last Admin: 05/12/17 17:11 Dose: Not Given Calcium/Vitamin D (Oscal W/Vitamin D) 1 tab PO DAILY GUTIERREZ Stop: 06/19/17 08:59 Last Admin: 05/12/17 09:35 Dose: Not Given Carvedilol (Coreg) 3.125 mg PO BIDWM GUTIERREZ Stop: 06/19/17 07:59 Last Admin: 05/12/17 17:11 Dose: Not Given Clonidine HCl (Catapres) 0.1 mg PO Q8HR PRN PRN Reason: Hypertension Stop: 07/04/17 07:48 Last Admin: 05/10/17 05:42 Dose: 0.1 mg Divalproex Sodium (Depakote Er) 500 mg PO BID GUTIERREZ PRN Reason: Protocol Stop: 06/19/17 08:59 Last Admin: 05/12/17 17:11 Dose: Not Given Docusate Sodium (Colace) 100 mg PO BID GUTIERREZ Stop: 06/19/17 08:59 Last Admin: 05/12/17 17:11 Dose: Not Given Escitalopram Oxalate (Lexapro) 10 mg PO DAILY GUTIERREZ PRN Reason: Protocol Stop: 07/12/17 08:59 Losartan Potassium (Cozaar) 25 mg PO DAILY [facility] Stop: 07/11/17 08:59 Last Admin: 05/12/17 09:37 Dose: Not Given Magnesium Hydroxide (Milk Of Magnesia) 30 ml PO DAILY PRN PRN Reason: if stool softener ineffective Stop: 06/18/17 19:50 Last Admin: 05/11/17 23:55 Dose: 30 ml Nitrofurantoin Macrocrystals (Macrobid) 100 mg PO BID GUTIERREZ PRN Reason: Protocol Stop: 07/11/17 08:59 Last Admin: 05/12/17 17:11 Dose: Not Given Nystatin (Nystop) 0 units TP TID [facility] Stop: 07/09/17 20:59 Last Admin: 05/12/17 20:53 Dose: 1 units General: Alert HEENT: Atraumatic Cardiovascular: Regular rate Lungs: Clear to auscultation - Procedures Procedures: Procedures Procedure Code Date GROUP PSYCHOTHERAPY 98220 10/22/15 GROUP PSYCHOTHERAPY GZHZZZZ 10/22/15 OTHER GROUP THERAPY 94.44 05/18/15 RECREATIONAL THERAPY 93.81 11/02/12 Assessment/Plan - Problem List Patient Problems: All Active Problems Anxiety (Active) F41.9 Chronic obstructive lung disease (Active) J44.9 History of - depression (Active) Z86.59 INCREASED HALLUCINATIONS (Active 01/10/14) Osteoarthritis (Active) M19.90 Posttraumatic stress disorder (Active) F43.10 Schizoaffective disorder (Active) F25.9 Agitated (Acute) R45.1 - Assessment Assessment: Pyschosis Diabetes mellitus Asthma COPD Hyperlipidemia TIA CVA Periphereal Vascular disease Pseudobulbar Affect Disorder HTN improved UTI started on nitrofurantoin - Plan Plan: BP improved. will continue Losartan 25mg Po daily and continue to monitor BP. Patient started on Nitrofurantoin for UTI, awaiting culture and sensitivity Nutritional Asmnt/Malnutr-PDOC - Dietary Evaluation Malnutrition Findings (Please click <Entered> for more info): Nutritional Asmnt/Malnutrition Start: 04/22/17 10: 59 Text: Status: Complete Freq: Document 04/22/17 10:59 MMPIPER (Rec: 04/22/17 11:11 MMPIPER CLAY- FNS1) Nutritional Asmnt/Malnutrition Patient General Information Nutritional Screening Moderate Risk Screening Diagnosis Psychosis Pertinent Medical Hx/Surgical Hx Schizophrenia, major depressive disorder, COPD, Seizure, Hypertension, anxiety , cardiomegaly, osteoarthritis . Subjective Information Patient was admitted from SNF for increased agitation, aggressive behavior and paranoia. Sitting up in bed. No issues with current diet; adequate oral intake to meet nutrient needs. Current Diet Order/ Nutrition Support Mechanical soft chopped Patient / S.O Not Indicated Pertinent Medications oscal w/vitamin D, colace, MOM Pertinent Labs TAG 237 Nutritional Hx/Data Height 1.73 m Height (Calculated Centimeters) 172.7 Current Weight (lbs) 97.069 kg Weight (Calculated Kilograms) 97.1 Weight (Calculated Grams) 57689.8 [place] Body Weight 140 % [place] Body Weight 152 Recent Weight Change No Weight Status Obese GI Symptoms GI Symptoms None Food Allergies No Cultural/Ethnic/Amish Belief None indicated Usual diet at home soft Skin Integrity/Comment: Jason 21 Current %PO Good (75-100%) Estimated Nutritional Goals BEE in Kcals: Adj wt of IBW Calories/Kcals/Kg 72kg AdjBW 25-30 kcal/kg Kcals Calculated ~9872-7005 kcal/day Protein: Adj wt of IBW Protein g/k-1.2 gm/kg Protein Calculated 70-85 gm/day Fluid: ml ~0540-8072 ml/day (1 ml/kcal) Nutritional Problem 1. Problem Problem Obesity related to Etiology possible excessive oral intake aeb Signs/Symptoms: BMI 32.5 kg/m2 Intervention/Recommendation Comments 1. Continue mechanical soft chopped diet as tolerated by patient. 2. Monitor weight and prevent snacking between meals. Expected Outcomes/Goals Expected Outcomes/Goals Weight stable or trend toward ideal body weight, labs remain normal, oral intake to meet 75-100% of estimated nutrient needs.
[2017-05-13] MEDS: Atorvastatin Calcium 10 MG TAB PO SCH (09:55)
[2017-05-13] MEDS: Calcium Carb/Vit D 500 mg/200 U Tab PO SCH (09:56)
[2017-05-13] MEDS: Benztropine 1 MG TAB PO SCH ×2 (09:56→18:12)
[2017-05-13] MEDS: NYSTATIN 100000 UNITS/GM POWD TP SCH ×3 (10:17→20:18)
--- NOTE | 2017-05-13 20:53 | Progress Notes ---
DATE: 05/13/2017 SUBJECTIVE: Chart reviewed and the patient interviewed. Also discussed the patient's condition with the staff and reviewed records and labs. The patient is still anxious and she is still confused. The patient also is forgetful and in the beginning of my interview, she remembered my name "Farhad" but later on she did not remember my name and asked me about my name. She also is still unable to have any safe plan for self-care and has disorganized thoughts. She also is withdrawn and interacting minimally with others. [facility]# [id number]
[2017-05-14] MEDS: Atorvastatin Calcium 10 MG TAB PO SCH (08:52)
[2017-05-14] MEDS: Benztropine 1 MG TAB PO SCH ×2 (08:53→16:34)
[2017-05-14] MEDS: Calcium Carb/Vit D 500 mg/200 U Tab PO SCH (08:53)
[2017-05-14] MEDS: NYSTATIN 100000 UNITS/GM POWD TP SCH ×5 (08:55→20:53)
--- NOTE | 2017-05-14 19:15 | Progress Notes ---
DATE: 05/14/2017 SUBJECTIVE: Chart reviewed and the patient interviewed. Also discussed the patient's condition with the staff and reviewed records and labs. The patient is still confused and is still anxious, although today she did remember my name right away and she was able to carry on coherent conversation. The patient also is still having episodes of irritability and anger, but less than before. The patient also is still intrusive at times and interfering in other people business for no reason. Otherwise, the patient continued to comply with taking her medications with no side effects of medications. ASSESSMENT: The patient is still ____ degree of disabled ____. TREATMENT PLAN: We will continue monitoring her behavior and her condition closely. Also, immigration case manager is working on discharge plans and on placement issue. JOB# [id number]
--- NOTE | 2017-05-14 20:05 | General Progress Note ---
Subjective - Review of Systems Service Date: 05/14/17 Subjective: Awake,Alert,Afebrile Objective - Results Result Diagrams: 05/11/17 11:39 05/11/17 11:39 Recent Labs: Laboratory Last Values WBC 8.9 Th/cmm (4.8-10.8) D 05/11/17 11:39 RBC 4.27 Mil/cmm (3.80-5.10) 05/11/17 11:39 Hgb 13.4 gm/dL (11.7-15.5) 05/11/17 11:39 Hct 39.3 % (35.0-45.0) 05/11/17 11:39 MCV 92.1 fl (81-100) 05/11/17 11:39 MCH 31.3 pg (27.0-31.0) H 05/11/17 11:39 MCHC Differential 34.0 pg (28.0-36.0) 05/11/17 11:39 RDW 12.6 % (11.5-20.0) 05/11/17 11:39 Plt Count 170 Th/cmm (150-400) 05/11/17 11:39 MPV 10.7 fl 05/11/17 11:39 Neutrophils % 72.8 % (40.0-80.0) 05/11/17 11:39 Lymphocytes % 17.0 % (20.0-50.0) L 05/11/17 11:39 Monocytes % 8.4 % (2.0-10.0) 05/11/17 11:39 Eosinophils % 1.0 % (0.0-5.0) 05/11/17 11:39 Basophils % 0.8 % (0.0-2.0) 05/11/17 11:39 Sodium 134 mEq/L (136-145) L 05/11/17 11:39 Potassium 4.1 mEq/L (3.5-5.1) 05/11/17 11:39 Chloride 100 mEq/L (98-107) 05/11/17 11:39 Carbon Dioxide 27.3 mEq/L (21.0-31.0) 05/11/17 11:39 Anion Gap 10.8 (7.0-16.0) 05/11/17 11:39 BUN 14 mg/dL (7-25) 05/11/17 11:39 Creatinine 0.8 mg/dL (0.6-1.2) 05/11/17 11:39 Est GFR ( Amer) > 60.0 ml/min (>90) 05/11/17 11:39 Est GFR (Non-Af Amer) > 60.0 ml/min 05/11/17 11:39 BUN/Creatinine Ratio 17.5 05/11/17 11:39 Glucose 146 mg/dL (70-105) H 05/11/17 11:39 Calcium 9.9 mg/dL (8.6-10.3) 05/11/17 11:39 Total Bilirubin 0.4 mg/dL (0.3-1.0) 05/11/17 11:39 AST 19 U/L (13-39) 05/11/17 11:39 ALT 18 U/L (7-52) 05/11/17 11:39 Alkaline Phosphatase 50 U/L (34-104) 05/11/17 11:39 Total Protein 7.9 gm/dL (6.0-8.3) 05/11/17 11:39 Albumin 4.3 gm/dL (3.7-5.3) 05/11/17 11:39 Globulin 3.6 gm/dL 05/11/17 11:39 Albumin/Globulin Ratio 1.2 (1.0-1.8) 05/11/17 11:39 Triglycerides 237 mg/dL (<150) H 04/19/17 16:52 Cholesterol 177 mg/dL (<200) 04/19/17 16:52 LDL Cholesterol Direct 122 mg/dL (75-193) 04/19/17 16:52 HDL Cholesterol 23 mg/dL (23-92) 04/19/17 16:52 TSH 1.52 uIU/ml (0.34-5.60) 04/19/17 16:52 Urine Source CATH 05/12/17 05:45 Urine Color YELLOW 05/12/17 05:45 Urine Clarity SLIGHT HAZY (CLEAR) 05/12/17 05:45 Urine pH 7.0 05/12/17 05:45 Ur Specific [place] 1.010 (1.005-1.030) 05/12/17 05:45 Urine Protein NEGATIVE mg/dL (NEGATIVE) 05/12/17 05:45 Urine Glucose (UA) NEGATIVE mg/dL (NEGATIVE) 05/12/17 05:45 Urine Ketones TRACE mg/dL (NEGATIVE) 05/12/17 05:45 Urine Blood TRACE (NEGATIVE) 05/12/17 05:45 Urine Nitrate NEGATIVE (NEGATIVE) 05/12/17 05:45 Urine Bilirubin NEGATIVE (NEGATIVE) 05/12/17 05:45 Urine Urobilinogen 0.2 E.U./dL (0.2 - 1.0) 05/12/17 05:45 Ur Leukocyte Esterase NEGATIVE (NEGATIVE) 05/12/17 05:45 Urine RBC 0-2 /hpf (0-5) 05/12/17 05:45 Urine WBC 0-2 /hpf (0-5) 05/12/17 05:45 Ur Epithelial Cells FEW /lpf (FEW) 05/12/17 05:45 Urine Bacteria NONE SEEN /hpf (NONE SEEN) 05/12/17 05:45 Salicylates < 25.0 mg/L (30.0-100.0) L 04/19/17 16:52 Urine Opiates Screen NEGATIVE (NEGATIVE) 04/19/17 18:30 Urine Methadone Screen NEGATIVE (NEGATIVE) 04/19/17 18:30 Acetaminophen < 10.0 ug/mL (10.0-30.0) L 04/19/17 16:52 Ur Barbiturates Screen NEGATIVE (NEGATIVE) 04/19/17 18:30 Valproic Acid 51.5 ug/mL (50.0-100.0) 04/30/17 10:22 Ur Tricyclics Screen NEGATIVE (NEGATIVE) 04/19/17 18:30 Ur Phencyclidine Scrn NEGATIVE (NEGATIVE) 04/19/17 18:30 Amphetamines Screen NEGATIVE (NEGATIVE) 04/19/17 18:30 U Methamphetamines Scrn NEGATIVE (NEGATIVE) 04/19/17 18:30 U Benzodiazepines Scrn NEGATIVE (NEGATIVE) 04/19/17 18:30 U Cocaine Metab Screen NEGATIVE (NEGATIVE) 04/19/17 18:30 U Cannabinoids Screen NEGATIVE (NEGATIVE) 04/19/17 18:30 Ethyl Alcohol < 10 mg/dL (0-10) 04/19/17 16:52 RPR NONREACTIVE (NONREACTIVE) 04/19/17 16:52 - Physical Exam Vitals and I&O: Vital Signs Temp 98.6 F 05/14/17 16:11 Pulse 87 05/14/17 18:07 Resp 20 05/14/17 16:11 BP 139/65 05/14/17 18:07 Pulse Ox 92 05/14/17 16:11 Intake & Output 05/14/17 05/14/17 05/15/17 06:59 18:59 06:59 Intake Total 900 Balance 900 Intake: Oral 900 Other: # Voids 4 # Bowel Movements 1 Active Medications: Current Medications Acetaminophen (Tylenol) 650 mg PO Q4HR PRN PRN Reason: Pain Stop: 06/18/17 19:50 Last Admin: 04/22/17 14:50 Dose: 650 mg Atorvastatin Calcium (Lipitor) 10 mg PO DAILY GUTIERREZ PRN Reason: Protocol Stop: 06/22/17 08:59 Last Admin: 05/14/17 08:52 Dose: 10 mg Benztropine Mesylate (Cogentin) 2 mg PO BID GUTIERREZ Stop: 06/19/17 11:55 Last Admin: 05/14/17 16:34 Dose: 2 mg Bupropion HCl (Wellbutrin Sr) 150 mg PO BID GUTIERREZ PRN Reason: Protocol Stop: 07/01/17 16:59 Last Admin: 05/14/17 16:35 Dose: 150 mg Calcium/Vitamin D (Oscal W/Vitamin D) 1 tab PO DAILY GUTIERREZ Stop: 06/19/17 08:59 Last Admin: 05/14/17 08:53 Dose: 1 tab Carvedilol (Coreg) 3.125 mg PO BIDWM GUTIERREZ Stop: 06/19/17 07:59 Last Admin: 05/14/17 18:07 Dose: 3.125 mg Clonidine HCl (Catapres) 0.1 mg PO Q8HR PRN PRN Reason: Hypertension Stop: 07/04/17 07:48 Last Admin: 05/10/17 05:42 Dose: 0.1 mg Divalproex Sodium (Depakote Er) 500 mg PO BID GUTIERREZ PRN Reason: Protocol Stop: 06/19/17 08:59 Last Admin: 05/14/17 16:35 Dose: 500 mg Docusate Sodium (Colace) 100 mg PO BID GUTIERREZ Stop: 06/19/17 08:59 Last Admin: 05/14/17 16:35 Dose: 100 mg Escitalopram Oxalate (Lexapro) 10 mg PO DAILY GUTIERREZ PRN Reason: Protocol Stop: 07/12/17 08:59 Last Admin: 05/14/17 08:54 Dose: 10 mg Losartan Potassium (Cozaar) 25 mg PO DAILY [facility] Stop: 07/11/17 08:59 Last Admin: 05/14/17 08:54 Dose: 25 mg Magnesium Hydroxide (Milk Of Magnesia) 30 ml PO DAILY PRN PRN Reason: if stool softener ineffective Stop: 06/18/17 19:50 Last Admin: 05/11/17 23:55 Dose: 30 ml Nitrofurantoin Macrocrystals (Macrobid) 100 mg PO BID [facility] PRN Reason: Protocol Stop: 07/11/17 08:59 Last Admin: 05/14/17 16:35 Dose: 100 mg Nystatin (Nystop) 0 units TP TID [facility] Stop: 07/09/17 20:59 Last Admin: 05/14/17 14:00 Dose: 100 units General: Alert HEENT: Atraumatic Cardiovascular: Regular rate Lungs: Clear to auscultation - Procedures Procedures: Procedures Procedure Code Date GROUP PSYCHOTHERAPY 53697 10/22/15 GROUP PSYCHOTHERAPY GZHZZZZ 10/22/15 OTHER GROUP THERAPY 94.44 05/18/15 RECREATIONAL THERAPY 93.81 11/02/12 Assessment/Plan - Problem List Patient Problems: All Active Problems Anxiety (Active) F41.9 Chronic obstructive lung disease (Active) J44.9 History of - depression (Active) Z86.59 INCREASED HALLUCINATIONS (Active 01/10/14) Osteoarthritis (Active) M19.90 Posttraumatic stress disorder (Active) F43.10 Schizoaffective disorder (Active) F25.9 Agitated (Acute) R45.1 - Assessment Assessment: Pyschosis Diabetes mellitus Asthma COPD Hyperlipidemia TIA CVA Periphereal Vascular disease Pseudobulbar Affect Disorder HTN improved UTI started on nitrofurantoin - Plan Plan: BP improved. will continue Losartan 25mg Po daily and continue to monitor BP. Patient started on Nitrofurantoin for UTI, awaiting culture and sensitivity Nutritional Asmnt/Malnutr-PDOC - Dietary Evaluation Malnutrition Findings (Please click <Entered> for more info): Nutritional Asmnt/Malnutrition Start: 04/22/17 10: 59 Text: Status: Complete Freq: Document 04/22/17 10:59 MMULHERN (Rec: 04/22/17 11:11 MMULFox DANNA- [email or web address]) Nutritional Asmnt/Malnutrition Patient General Information Nutritional Screening Moderate Risk Screening Diagnosis Psychosis Pertinent Medical Hx/Surgical Hx Schizophrenia, major depressive disorder, COPD, Seizure, Hypertension, anxiety , cardiomegaly, osteoarthritis . Subjective Information Patient was admitted from SNF for increased agitation, aggressive behavior and paranoia. Sitting up in bed. No issues with current diet; adequate oral intake to meet nutrient needs. Current Diet Order/ Nutrition Support Mechanical soft chopped Patient / S.O Not Indicated Pertinent Medications oscal w/vitamin D, colace, MOM Pertinent Labs TAG 237 Nutritional Hx/Data Height 1.73 m Height (Calculated Centimeters) 172.7 Current Weight (lbs) 97.069 kg Weight (Calculated Kilograms) 97.1 Weight (Calculated Grams) 29942.8 [place] Body Weight 140 % [place] Body Weight 152 Recent Weight Change No Weight Status Obese GI Symptoms GI Symptoms None Food Allergies No Cultural/Ethnic/[employer] Belief None indicated Usual diet at home soft Skin Integrity/Comment: Jason 21 Current %PO Good (75-100%) Estimated Nutritional Goals BEE in Kcals: Adj wt of IBW Calories/Kcals/Kg 72kg AdjBW 25-30 kcal/kg Kcals Calculated ~1316-6468 kcal/day Protein: Adj wt of IBW Protein g/k-1.2 gm/kg Protein Calculated 70-85 gm/day Fluid: ml ~9251-8700 ml/day (1 ml/kcal) Nutritional Problem 1. Problem Problem Obesity related to Etiology possible excessive oral intake aeb Signs/Symptoms: BMI 32.5 kg/m2 Intervention/Recommendation Comments 1. Continue mechanical soft chopped diet as tolerated by patient. 2. Monitor weight and prevent snacking between meals. Expected Outcomes/Goals Expected Outcomes/Goals Weight stable or trend toward ideal body weight, labs remain normal, oral intake to meet 75-100% of estimated nutrient needs.
--- NOTE | 2017-05-15 07:59 | General Progress Note ---
Subjective - Review of Systems Service Date: 05/15/17 Subjective: Awake,Alert,Afebrile. No new complaints. Blood pressure improved. Patient feeling better. Objective - Results Result Diagrams: 05/11/17 11:39 05/11/17 11:39 Recent Labs: Laboratory Last Values WBC 8.9 Th/cmm (4.8-10.8) D 05/11/17 11:39 RBC 4.27 Mil/cmm (3.80-5.10) 05/11/17 11:39 Hgb 13.4 gm/dL (11.7-15.5) 05/11/17 11:39 Hct 39.3 % (35.0-45.0) 05/11/17 11:39 MCV 92.1 fl (81-100) 05/11/17 11:39 MCH 31.3 pg (27.0-31.0) H 05/11/17 11:39 MCHC Differential 34.0 pg (28.0-36.0) 05/11/17 11:39 RDW 12.6 % (11.5-20.0) 05/11/17 11:39 Plt Count 170 Th/cmm (150-400) 05/11/17 11:39 MPV 10.7 fl 05/11/17 11:39 Neutrophils % 72.8 % (40.0-80.0) 05/11/17 11:39 Lymphocytes % 17.0 % (20.0-50.0) L 05/11/17 11:39 Monocytes % 8.4 % (2.0-10.0) 05/11/17 11:39 Eosinophils % 1.0 % (0.0-5.0) 05/11/17 11:39 Basophils % 0.8 % (0.0-2.0) 05/11/17 11:39 Sodium 134 mEq/L (136-145) L 05/11/17 11:39 Potassium 4.1 mEq/L (3.5-5.1) 05/11/17 11:39 Chloride 100 mEq/L (98-107) 05/11/17 11:39 Carbon Dioxide 27.3 mEq/L (21.0-31.0) 05/11/17 11:39 Anion Gap 10.8 (7.0-16.0) 05/11/17 11:39 BUN 14 mg/dL (7-25) 05/11/17 11:39 Creatinine 0.8 mg/dL (0.6-1.2) 05/11/17 11:39 Est GFR ( Amer) > 60.0 ml/min (>90) 05/11/17 11:39 Est GFR (Non-Af Amer) > 60.0 ml/min 05/11/17 11:39 BUN/Creatinine Ratio 17.5 05/11/17 11:39 Glucose 146 mg/dL (70-105) H 05/11/17 11:39 Calcium 9.9 mg/dL (8.6-10.3) 05/11/17 11:39 Total Bilirubin 0.4 mg/dL (0.3-1.0) 05/11/17 11:39 AST 19 U/L (13-39) 05/11/17 11:39 ALT 18 U/L (7-52) 05/11/17 11:39 Alkaline Phosphatase 50 U/L (34-104) 05/11/17 11:39 Total Protein 7.9 gm/dL (6.0-8.3) 05/11/17 11:39 Albumin 4.3 gm/dL (3.7-5.3) 05/11/17 11:39 Globulin 3.6 gm/dL 05/11/17 11:39 Albumin/Globulin Ratio 1.2 (1.0-1.8) 05/11/17 11:39 Triglycerides 237 mg/dL (<150) H 04/19/17 16:52 Cholesterol 177 mg/dL (<200) 04/19/17 16:52 LDL Cholesterol Direct 122 mg/dL (75-193) 04/19/17 16:52 HDL Cholesterol 23 mg/dL (23-92) 04/19/17 16:52 TSH 1.52 uIU/ml (0.34-5.60) 04/19/17 16:52 Urine Source CATH 05/12/17 05:45 Urine Color YELLOW 05/12/17 05:45 Urine Clarity SLIGHT HAZY (CLEAR) 05/12/17 05:45 Urine pH 7.0 05/12/17 05:45 Ur Specific [place] 1.010 (1.005-1.030) 05/12/17 05:45 Urine Protein NEGATIVE mg/dL (NEGATIVE) 05/12/17 05:45 Urine Glucose (UA) NEGATIVE mg/dL (NEGATIVE) 05/12/17 05:45 Urine Ketones TRACE mg/dL (NEGATIVE) 05/12/17 05:45 Urine Blood TRACE (NEGATIVE) 05/12/17 05:45 Urine Nitrate NEGATIVE (NEGATIVE) 05/12/17 05:45 Urine Bilirubin NEGATIVE (NEGATIVE) 05/12/17 05:45 Urine Urobilinogen 0.2 E.U./dL (0.2 - 1.0) 05/12/17 05:45 Ur Leukocyte Esterase NEGATIVE (NEGATIVE) 05/12/17 05:45 Urine RBC 0-2 /hpf (0-5) 05/12/17 05:45 Urine WBC 0-2 /hpf (0-5) 05/12/17 05:45 Ur Epithelial Cells FEW /lpf (FEW) 05/12/17 05:45 Urine Bacteria NONE SEEN /hpf (NONE SEEN) 05/12/17 05:45 Salicylates < 25.0 mg/L (30.0-100.0) L 04/19/17 16:52 Urine Opiates Screen NEGATIVE (NEGATIVE) 04/19/17 18:30 Urine Methadone Screen NEGATIVE (NEGATIVE) 04/19/17 18:30 Acetaminophen < 10.0 ug/mL (10.0-30.0) L 04/19/17 16:52 Ur Barbiturates Screen NEGATIVE (NEGATIVE) 04/19/17 18:30 Valproic Acid 51.5 ug/mL (50.0-100.0) 04/30/17 10:22 Ur Tricyclics Screen NEGATIVE (NEGATIVE) 04/19/17 18:30 Ur Phencyclidine Scrn NEGATIVE (NEGATIVE) 04/19/17 18:30 Amphetamines Screen NEGATIVE (NEGATIVE) 04/19/17 18:30 U Methamphetamines Scrn NEGATIVE (NEGATIVE) 04/19/17 18:30 U Benzodiazepines Scrn NEGATIVE (NEGATIVE) 04/19/17 18:30 U Cocaine Metab Screen NEGATIVE (NEGATIVE) 04/19/17 18:30 U Cannabinoids Screen NEGATIVE (NEGATIVE) 04/19/17 18:30 Ethyl Alcohol < 10 mg/dL (0-10) 04/19/17 16:52 RPR NONREACTIVE (NONREACTIVE) 04/19/17 16:52 - Physical Exam Vitals and I&O: Vital Signs Temp 98.2 F 05/15/17 06:16 Pulse 76 05/15/17 06:45 Resp 19 05/15/17 06:16 BP 103/57 05/15/17 06:45 Pulse Ox 94 05/15/17 06:16 Intake & Output 05/14/17 05/15/17 05/15/17 18:59 06:59 18:59 Intake Total 900 Balance 900 Intake: Oral 900 Other: # Voids 4 # Bowel Movements 1 Active Medications: Current Medications Acetaminophen (Tylenol) 650 mg PO Q4HR PRN PRN Reason: Pain Stop: 06/18/17 19:50 Last Admin: 04/22/17 14:50 Dose: 650 mg Atorvastatin Calcium (Lipitor) 10 mg PO DAILY GUTIERREZ PRN Reason: Protocol Stop: 06/22/17 08:59 Last Admin: 05/14/17 08:52 Dose: 10 mg Bupropion HCl (Wellbutrin Sr) 150 mg PO BID GUTIERREZ PRN Reason: Protocol Stop: 07/01/17 16:59 Last Admin: 05/14/17 16:35 Dose: 150 mg Calcium/Vitamin D (Oscal W/Vitamin D) 1 tab PO DAILY GUTIERREZ Stop: 06/19/17 08:59 Last Admin: 05/14/17 08:53 Dose: 1 tab Carvedilol (Coreg) 3.125 mg PO BIDWM GUTIERREZ Stop: 06/19/17 07:59 Last Admin: 05/14/17 18:07 Dose: 3.125 mg Clonidine HCl (Catapres) 0.1 mg PO Q8HR PRN PRN Reason: Hypertension Stop: 07/04/17 07:48 Last Admin: 05/15/17 05:31 Dose: 0.1 mg Divalproex Sodium (Depakote Er) 500 mg PO BID GUTIERREZ PRN Reason: Protocol Stop: 06/19/17 08:59 Last Admin: 05/14/17 16:35 Dose: 500 mg Docusate Sodium (Colace) 100 mg PO BID GUTIERREZ Stop: 06/19/17 08:59 Last Admin: 05/14/17 16:35 Dose: 100 mg Escitalopram Oxalate (Lexapro) 10 mg PO DAILY GUTIERREZ PRN Reason: Protocol Stop: 07/12/17 08:59 Last Admin: 05/14/17 08:54 Dose: 10 mg Losartan Potassium (Cozaar) 25 mg PO DAILY [facility] Stop: 07/11/17 08:59 Last Admin: 05/14/17 08:54 Dose: 25 mg Magnesium Hydroxide (Milk Of Magnesia) 30 ml PO DAILY PRN PRN Reason: if stool softener ineffective Stop: 06/18/17 19:50 Last Admin: 05/11/17 23:55 Dose: 30 ml Nitrofurantoin Macrocrystals (Macrobid) 100 mg PO BID GUTIERREZ PRN Reason: Protocol Stop: 07/11/17 08:59 Last Admin: 05/14/17 16:35 Dose: 100 mg Nystatin (Nystop) 0 units TP TID [facility] Stop: 07/09/17 20:59 Last Admin: 05/14/17 20:53 Dose: 100 units General: Alert HEENT: Atraumatic Cardiovascular: Regular rate Lungs: Clear to auscultation - Procedures Procedures: Procedures Procedure Code Date GROUP PSYCHOTHERAPY 40366 10/22/15 GROUP PSYCHOTHERAPY GZHZZZZ 10/22/15 OTHER GROUP THERAPY 94.44 05/18/15 RECREATIONAL THERAPY 93.81 11/02/12 Assessment/Plan - Problem List Patient Problems: All Active Problems Anxiety (Active) F41.9 Chronic obstructive lung disease (Active) J44.9 History of - depression (Active) Z86.59 INCREASED HALLUCINATIONS (Active 01/10/14) Osteoarthritis (Active) M19.90 Posttraumatic stress disorder (Active) F43.10 Schizoaffective disorder (Active) F25.9 Agitated (Acute) R45.1 - Assessment Assessment: Pyschosis Diabetes mellitus Asthma COPD Hyperlipidemia TIA CVA Periphereal Vascular disease Pseudobulbar Affect Disorder HTN improved UTI started on nitrofurantoin - Plan Plan: HTN controlled with Losartan 25mg once daily. UTI on Nitrofurantoin. urine C&S pending. Nutritional Asmnt/Malnutr-PDOC - Dietary Evaluation Malnutrition Findings (Please click <Entered> for more info): Nutritional Asmnt/Malnutrition Start: 04/22/17 10: 59 Text: Status: Complete Freq: Document 04/22/17 10:59 MMPIPER (Rec: 04/22/17 11:11 SUN CLAY- FN) Nutritional Asmnt/Malnutrition Patient General Information Nutritional Screening Moderate Risk Screening Diagnosis Psychosis Pertinent Medical Hx/Surgical Hx Schizophrenia, major depressive disorder, COPD, Seizure, Hypertension, anxiety , cardiomegaly, osteoarthritis . Subjective Information Patient was admitted from SNF for increased agitation, aggressive behavior and paranoia. Sitting up in bed. No issues with current diet; adequate oral intake to meet nutrient needs. Current Diet Order/ Nutrition Support Mechanical soft chopped Patient / S.O Not Indicated Pertinent Medications oscal w/vitamin D, colace, MOM Pertinent Labs TAG 237 Nutritional Hx/Data Height 1.73 m Height (Calculated Centimeters) 172.7 Current Weight (lbs) 97.069 kg Weight (Calculated Kilograms) 97.1 Weight (Calculated Grams) 68810.8 [place] Body Weight 140 % [place] Body Weight 152 Recent Weight Change No Weight Status Obese GI Symptoms GI Symptoms None Food Allergies No Cultural/Ethnic/Holiness Belief None indicated Usual diet at home soft Skin Integrity/Comment: [place] Current %PO Good (75-100%) Estimated Nutritional Goals BEE in Kcals: Adj wt of IBW Calories/Kcals/Kg 72kg AdjBW 25-30 kcal/kg Kcals Calculated ~3258-7255 kcal/day Protein: Adj wt of IBW Protein g/k-1.2 gm/kg Protein Calculated 70-85 gm/day Fluid: ml ~0892-2337 ml/day (1 ml/kcal) Nutritional Problem 1. Problem Problem Obesity related to Etiology possible excessive oral intake aeb Signs/Symptoms: BMI 32.5 kg/m2 Intervention/Recommendation Comments 1. Continue mechanical soft chopped diet as tolerated by patient. 2. Monitor weight and prevent snacking between meals. Expected Outcomes/Goals Expected Outcomes/Goals Weight stable or trend toward ideal body weight, labs remain normal, oral intake to meet 75-100% of estimated nutrient needs.
[2017-05-15] MEDS: Calcium Carb/Vit D 500 mg/200 U Tab PO SCH (09:34)
[2017-05-15] MEDS: Atorvastatin Calcium 10 MG TAB PO SCH (09:36)
[2017-05-15] MEDS: NYSTATIN 100000 UNITS/GM POWD TP SCH (09:39)
--- NOTE | 2017-05-15 10:15 | Discharge Summary ---
DATE OF DISCHARGE: 05/15/2017 IDENTIFYING INFORMATION: The patient is a 62-year-old female. REASON FOR THE ADMISSION: The patient was referred because of increasing agitation, anxiety, out of control behavior and psychosis. The patient was a very poor historian. She is a well known case to me. I have seen her for the past 2 years. She is unpredictable, impulsive. COURSE IN THE HOSPITAL: The patient was continued with her medications. She was continued with Depakote 500 mg twice a day, Lexapro 10 mg, increased by 5 mg and I added Lexapro 5 mg increased to 10 mg a day. She was also on nystatin, ____, magnesium, losartan. She was on Seroquel. I added Seroquel increased the dose to 600 mg a day, but the patient started becoming very sleepy, so I added Risperdal and increased the dose to 2 mg twice a day and tapered off the Seroquel, but the patient became delirious and so I stopped the Risperdal. She was also because of lack of energy and motivation, she was sleeping all day. I added Wellbutrin, increased the dose to 150 mg twice a day. The patient was no longer acting in a psychotic manner actually she is not on any antipsychotic, so she was doing much better, so she improved. She was alert, oriented. She was able to recognize me, able to take care for self, verified if she could go back to [place]. FINAL DIAGNOSES: AXIS I: Schizoaffective disorder bipolar type. I will followup with the patient in [place]. Will follow up with the medical doctor there. EXPECTED OUTCOME: Stable if the patient complies with the above. JOB# [id number]
== END 2017-05-15 12:15 | disposition home or self-care (01) | DRG 885 ==
LOC: ER 16:35 → GERO 18:30
PROVIDERS: ADMIT Psychiatry & Neurology Psychiatry; ATTEND Psychiatry & Neurology Psychiatry
DX: F25.0 Schizoaffective disorder, bipolar type (principal); E11.51 Type 2 diabetes mellitus with diabetic peripheral angiopathy without gangrene; N39.0 Urinary tract infection, site not specified; F29 Unspecified psychosis not due to a substance or known physiological condition; I10 Essential (primary) hypertension; I25.10 Atherosclerotic heart disease of native coronary artery without angina pectoris; F41.9 Anxiety disorder, unspecified; J44.9 Chronic obstructive pulmonary disease, unspecified; M19.90 Unspecified osteoarthritis, unspecified site; F43.10 Post-traumatic stress disorder, unspecified; E78.5 Hyperlipidemia, unspecified; F48.2 Pseudobulbar affect; Z82.49 Family history of ischemic heart disease and other diseases of the circulatory system; Z86.73 Personal history of transient ischemic attack (TIA), and cerebral infarction without residual deficits
CPT/HCPCS: 36415-UA; 80053-TC; 80061-TC; 80164-TC; 80307; 80320-TC; 80329-TC; 81001-TC; 84443-TC; 85025-TC; 86592-TC; 90899; 93005; Z7610